=== PATIENT | male | born 1935 | race Caucasian/White ===

== ENCOUNTER → 2019-01-13 11:18 | Outpatient (CLI) | payer MEDICARE, SELFPAY ==
--- NOTE | 2019-01-13 | DI.RAD.S_ITS ---
PROCEDURE: XR KNEE LT 3V INDICATIONS: LEFT KNEE PAIN TECHNIQUE: 3 views of the knee were acquired. COMPARISON: None. FINDINGS: Bones: No fractures or dislocations. There is mild femorotibial compartment narrowing. No suspicious bony lesions. Soft tissues: No joint effusion. There are scattered atheromatous soft tissue vascular calcifications. IMPRESSION: Mild osteoarthritis and arterial atherosclerosis. Dictated by: Emilee Alba M.D. on 01/13/2019 at 16:46 Approved by: Emilee Alba M.D. on 01/13/2019 at 16:47
== END ==
PROVIDERS: PCP Family Medicine; Visit Provider Family Medicine
DX: M17.12 Unilateral primary osteoarthritis, left knee (principal); M25.562 Pain in left knee; G89.29 Other chronic pain
CPT/HCPCS: 73562

== ENCOUNTER → 2021-09-18 15:35 | Outpatient (CLI) | payer MEDICARE, SELFPAY ==
--- NOTE | 2021-09-18 | DI.ECHO.S_ITS ---
[facility]---------+ [facility] +---------+ : : [address] : : : : [id number] : : : : Phone: [phone]+ Echocardiogram Report + + :Name: TED MORENO Study Date: 09/18/2021 Height: 72 in : :[facility] ReadingLocation: Weight: 160 lb : : Gender: Male BSA: 1.9 m2 : :: 1935 Age: 86 yrs BP: 188/100 mmHg: :Reason For Study: PROSTHETIC HEART VALVE : :Ordering Physician: DAYANA, : :VALDEMAR Performed By: Steffany Viera : :Referring: VALDEMAR ANNE : + + Interpretation Summary The left ventricle is normal in size. There is mild-moderate concentric left ventricular hypertrophy. Left ventricular ejection fraction is estimated to be 60 +/- 5%. Previous LV ejection fraction 65 to 70%. MV E/A: 0.88 Med Peak E' Trevor: 2.9 cm/sec E/E' med: 32.2. Previously ratio 23.5. The right ventricle is normal in size and function. There is moderate mitral regurgitation. Compared to the prior echo study, there has been an increase in the severity of mitral regurgitation. Previously mild to moderate MR. There is a prosthetic aortic valve. There is mild perivalvular regurgitation around the prosthetic aortic valve. No significant change. The peak aortic velocity is 2.23 m/sec. The aortic valve mean gradient is 11 mmHg. The peak aortic velocity on the previous exam was 2.7 m/sec. There is moderate tricuspid regurgitation. Compared to the prior echo exam, there has been an increase in TR severity. Previously mild TR. The right ventricular systolic pressure is estimated to be at least 41 mmHg based on an estimated right atrial pressure of 3 mm Hg. Previously it was 36 mmHg. There is mild luminal irregularity and echogenicity in the abdominal aorta, suggestive of aortic atherosclerotic disease. Procedure: A two-dimensional transthoracic echocardiogram with color flow and Doppler was performed. The study quality was technically adequate. Comparison is made with the echocardiogram of 11/03/2018. The heart rate ranged between 67-76 bpm during the study. The patient had occasional PVCs during the exam. The patient was in normal sinus rhythm during the exam. The patient had a bundle branch block rhythm during the exam. Left Ventricle: The left ventricle is normal in size. There is mild-moderate concentric left ventricular hypertrophy. There is no thrombus. Left ventricular ejection fraction is estimated to be 60 +/- 5%. Septal motion is consistent with conduction abnormality. MV E/A: 0.88 Med Peak E' Trevor: 2.9 cm/sec E/E' med: 32.2. Right Ventricle: The right ventricle is normal in size and function. Atria: The left atrium is severely dilated. The left atrium has mildly increased in size since the prior echo exam. The right atrium is mildly dilated. There is no Doppler evidence for an interatrial shunt. Mitral Valve: There is moderate mitral annular calcification. Tip of the anterior mitral leaflet has calcification. No significant mitral stenosis. The mitral valve chordae are thickened and/or calcified. No significant mitral valve stenosis. There is moderate mitral regurgitation. Compared to the prior echo study, there has been an increase in the severity of mitral regurgitation. Aortic Valve: There is a prosthetic aortic valve. There is mild perivalvular regurgitation around the prosthetic aortic valve. The peak aortic velocity is 2.23 m/sec. The aortic valve mean gradient is 11 mmHg. The peak aortic velocity on the previous exam was 2.7 m/sec. Tricuspid Valve: The tricuspid valve leaflets are thin and pliable. There is moderate tricuspid regurgitation. The right ventricular systolic pressure is estimated to be at least 41 mmHg based on an estimated right atrial pressure of 3 mm Hg. Compared to the prior echo exam, there has been an increase in TR severity. Pulmonic Valve: The pulmonic valve leaflets are thin and pliable; valve motion is normal. There is trace pulmonic regurgitation. Great Vessels: The aortic root is not well visualized. The dimensions of the ascending aorta are normal. There is mild luminal irregularity and echogenicity in the abdominal aorta, suggestive of aortic atherosclerotic disease. The IVC is of normal diameter and collapses greater than 50% with a sniff. This suggests a low right atrial pressure of 3 mm Hg. Pericardium/ Pleura There is no pericardial effusion. There is no pleural effusion. MMode/2D Measurements & Calculations LVIDd: 4.9 cm LVOT diam: 2.1 cm LVIDs: 3.4 cm asc Aorta Diam: 3.0 cm FS: 29.6 % IVSd: 1.4 cm LVPWd: 1.3 cm LV starks. diameter/BSA (cm/m^2): 2.5 LV sys. diameter/BSA (cm/m^2): 1.8 LA A2 area: 25.7 cm2 RA long axis: 5.7 cm LA A4 area: 23.5 cm2 RA area: 20.9 cm2 LA length (vol): 5.6 cm RA vol: 65.0 ml LA vol: 91.7 ml RA : 33.6 ml/m2 LA vol index: 47.3 ml/m2 IVC diam: 1.5 cm RVD1 (basal): 3.5 cm TAPSE: 2.4 cm Doppler Measurements & Calculations Ao V2 max: 223.4 cm/sec LVOT Max Trevor: 82.4 cm/sec Ao V2 mean: 157.5 cm/sec LV V1 max P.7 mmHg Ao max P.1 mmHg LV V1 VTI: 15.9 cm Ao mean P.3 mmHg ANAY(I,D): 1.2 cm2 Ao V2 VTI: 44.3 cm ANAY(V,D): 1.2 cm2 sev ratio: 0.36 ANAY indexed to BSA (cm^2/m^2): 0.62 MV E max trevor: 92.2 cm/sec TR max trevor: 306.6 cm/sec MV A max trevor: 105.2 cm/sec TR max P.6 mmHg MV E/A: 0.88 PA V2 max: 121.0 cm/sec Med Peak E' Trevor: 2.9 cm/sec PA V2 mean: 82.4 cm/sec E/E' med: 32.2 PA mean P.1 mmHg Lat Peak E' Trevor: 4.9 cm/sec PA pr(Accel): 36.2 mmHg E/E' lat: 18.6 E/e' average: 25.4 MV dec time: 0.34 sec SV(LVOT): 53.2 ml Reading Physician:12:45 PM
== END ==
PROVIDERS: PCP Family Medicine; Referring Provider Internal Medicine Cardiovascular Disease; Visit Provider Internal Medicine Cardiovascular Disease
DX: Z95.2 Presence of prosthetic heart valve (principal); I08.3 Combined rheumatic disorders of mitral, aortic and tricuspid valves
CPT/HCPCS: 93306

== ENCOUNTER → 2021-11-12 12:11 | Outpatient (CLI) | payer MEDICARE, SELFPAY ==
[2021-11-12 19:19] LABS: Alanine Aminotransferase 19 IU/L (<50); Albumin Globulin Ratio 1.4 (1.0-2.8); Alkaline Phosphatase 119 U/L (38-126); Aspartate Aminotransferase 34 IU/L (17-59); BUN Creatinine Ratio 25.7 (6-22); Bilirubin Total 0.9 mg/dL (0.2-1.3); Blood Urea Nitrogen 19 mg/dL (9-20); Calcium 9.5 mg/dL (8.4-10.2); Carbon Dioxide 29 mmol/L (22-32); Chloride 103 mmol/L (98-107); Cholesterol 167 mg/dL (140-199); Estimated Glomerular Filt Rate > 60 mL/min (>60); Globulin 2.9 g/dL (1.7-4.1); Glucose 92 mg/dL (80-110); HDL Cholesterol 88 mg/dL (40-60); HEMOLYSIS < 15 (0-50); LDL Cholesterol Calculated 63 mg/dL (<100); Potassium 4.6 mmol/L (3.4-5.1); Sodium 138 mmol/L (137-145); Total Protein 6.9 g/dL (6.3-8.2); Triglycerides 80 mg/dL (35-150)
[2021-11-12 19:22] LABS: Add Manual Diff / Slide Review NO; Basophils Absolute Auto 100 /uL (0-100); Basophils Percent Auto 0.9 % (0-2); Eosinophils Absolute Auto 100 /uL (0-450); Hematocrit 40.7 % (41-53); Hemoglobin 13.8 g/dL (13.5-17.5); Lymphocytes Absolute Auto 1300 /uL (1100-4500); Lymphocytes Percent Auto 17.4 % (25-40); Mean Corpuscular HGB Conc 33.9 % (30-36); Mean Corpuscular Hemoglobin 29.3 PG (26-34); Mean Corpuscular Volume 86.6 fL (80-100); Monocytes Absolute Auto 900 /uL (0-900); Neutrophils Absolute Auto 4900 /uL (1500-7000); Neutrophils Percent Auto 67.7 % (50-75); Platelet Count 417 X10^3/uL (150-400); Red Cell Distribution Width 15.1 % (11.6-14.8); White Blood Cell Count 7.2 X10^3/uL (4.5-11.0)
[2021-11-12 19:26] LABS: NT-proBNP (BNP-Adult 18+) 412 pg/mL (<450)
[2021-11-12 20:07] LABS: Vitamin B12 522 pg/mL (239-931)
== END ==
PROVIDERS: PCP Family Medicine; Visit Provider Family Medicine
DX: E78.2 Mixed hyperlipidemia (principal); I50.9 Heart failure, unspecified; D75.839 Thrombocytosis, unspecified; I10 Essential (primary) hypertension; I25.10 Atherosclerotic heart disease of native coronary artery without angina pectoris; I35.0 Nonrheumatic aortic (valve) stenosis; I65.23 Occlusion and stenosis of bilateral carotid arteries; M62.59 Muscle wasting and atrophy, not elsewhere classified, multiple sites; R25.1 Tremor, unspecified; R41.3 Other amnesia; R41.89 Other symptoms and signs involving cognitive functions and awareness; Z87.898 Personal history of other specified conditions
CPT/HCPCS: 80053; 80061; 82607; 83880; 85025

== ENCOUNTER → 2021-12-05 12:42 | Outpatient (CLI) | payer MEDICARE, SELFPAY ==
--- NOTE | 2021-12-05 12:46 | DI.MRI.S_ITS ---
PROCEDURE: MR HEAD/BRAIN WO/W CON INDICATIONS: Rule out Parkinson's demyelinating disorder dementia related TECHNIQUE: Noncontrast axial T1 spin echo, axial T2 fast spin echo, sagittal and axial FLAIR, coronal T2 fast spin echo, axial gradient echo, axial diffusion and ADC through the brain. After the administration of contrast, axial and coronal T1 spin echo with fat saturation through the brain. COMPARISON: RG, MRI BRAIN (IAC) W/WO CONTRAST, 01/30/2005, 12:58. FINDINGS: Image quality: Excellent. CSF spaces: Basal cisterns are patent. No extra-axial fluid collections. Ventricles are normal in size and shape. Brain: No midline shift. No intracranial bleeds or masses. No abnormal intracranial enhancement. There is moderate cerebral volume loss for age. There is moderate periventricular white matter chronic small vessel ischemic change. The brainstem appears normal. Diffusion-weighted images demonstrate no acute ischemic insults. No chronic ischemic insults. Normal intravascular flow voids are present. Dural sinuses demonstrate normal postcontrast enhancement. Skull and face: Calvarial marrow is normal in signal. Orbits appear normal. Sinuses: Sinuses and mastoids appear clear. IMPRESSION: 1. No acute intracranial disease process. 2. No abnormal intracranial mass or suspicious postcontrast enhancement. 3. No areas of acute or chronic infarction. 4. Moderate, diffuse cerebral volume loss. 5. Moderate periventricular and subcortical white matter chronic microvascular ischemic change. Dictated by: Alyssia Rey MD, PhD on 12/05/2021 at 13:57 Approved by: Alyssia Rey MD, PhD on 12/05/2021 at 17:58
== END ==
PROVIDERS: PCP Family Medicine; Referring Provider Family Medicine; Visit Provider Family Medicine
DX: R41.3 Other amnesia (principal); R41.89 Other symptoms and signs involving cognitive functions and awareness; R25.1 Tremor, unspecified; D75.839 Thrombocytosis, unspecified; E78.2 Mixed hyperlipidemia; I10 Essential (primary) hypertension; I35.0 Nonrheumatic aortic (valve) stenosis; I65.23 Occlusion and stenosis of bilateral carotid arteries; M62.59 Muscle wasting and atrophy, not elsewhere classified, multiple sites
CPT/HCPCS: 70553; A9579

== ENCOUNTER → 2022-12-18 13:26 | Outpatient (CLI) | payer MEDICARE, SELFPAY ==
[2022-12-18 20:27] LABS: HEMOLYSIS < 15 (0-50); Iron 104 ug/dL (49-181)
[2022-12-18 20:38] LABS: Percent Iron Saturation 31 % (20-50); Total Iron Binding Capacity 336 ug/dL (261-462); Transferrin 227 mg/dL (206-381)
[2022-12-18 20:39] LABS: Aspartate Aminotransferase 34 IU/L (17-59); BUN Creatinine Ratio 27.2 (6-22); Blood Urea Nitrogen 22 mg/dL (9-20); Calcium 9.4 mg/dL (8.4-10.2); Carbon Dioxide 30 mmol/L (22-32); Chloride 102 mmol/L (98-107); Cholesterol 167 mg/dL (140-199); Estimated Glomerular Filt Rate > 60 mL/min (>60); Glucose 96 mg/dL (80-110); HDL Cholesterol 87 mg/dL (40-60); HEMOLYSIS < 15 (0-50); LDL Cholesterol Calculated 61 mg/dL (<100); Potassium 4.3 mmol/L (3.4-5.1); Sodium 138 mmol/L (137-145); Triglycerides 95 mg/dL (35-150)
[2022-12-18 20:46] LABS: Add Manual Diff / Slide Review SLIDE REVIEW; Basophils Absolute Auto 100 /uL (0-100); Basophils Percent Auto 0.7 % (0-2); Eosinophils Absolute Auto 200 /uL (0-450); Eosinophils Percent Auto 2.4 % (2-4); Hematocrit 42.8 % (41-53); Lymphocytes Absolute Auto 1400 /uL (1100-4500); Lymphocytes Percent Auto 15.8 % (25-40); Mean Corpuscular HGB Conc 32.7 % (30-36); Mean Corpuscular Volume 88.6 fL (80-100); Monocytes Absolute Auto 900 /uL (0-900); Monocytes Percent Auto 10.2 % (3-14); Neutrophils Absolute Auto 6300 /uL (1500-7000); Neutrophils Percent Auto 70.9 % (50-75); Platelet Count 426 X10^3/uL (150-400); Red Blood Cell Count 4.83 X10^6/uL (4.5-5.9); Red Cell Distribution Width 14.4 % (11.6-14.8); White Blood Cell Count 8.9 X10^3/uL (4.5-11.0)
[2022-12-18 20:47] LABS: Platelet Morphology Comment NOTE; RBC Morphology Normal Morphology
== END ==
PROVIDERS: PCP Family Medicine; Visit Provider Family Medicine
DX: E55.9 Vitamin D deficiency, unspecified (principal); E78.2 Mixed hyperlipidemia; D75.839 Thrombocytosis, unspecified; I10 Essential (primary) hypertension; I25.10 Atherosclerotic heart disease of native coronary artery without angina pectoris; I35.0 Nonrheumatic aortic (valve) stenosis; I65.23 Occlusion and stenosis of bilateral carotid arteries; M17.0 Bilateral primary osteoarthritis of knee; Z95.2 Presence of prosthetic heart valve; D64.9 Anemia, unspecified; B35.1 Tinea unguium; Z51.81 Encounter for therapeutic drug level monitoring
CPT/HCPCS: 80048; 80061; 82306; 83540; 83550; 84450; 85025

== ENCOUNTER → 2023-03-12 11:43 | Outpatient (CLI) | payer MEDICARE, SELFPAY ==
[2023-03-12 20:14] LABS: Aspartate Aminotransferase 33 IU/L (17-59)
== END ==
PROVIDERS: PCP Family Medicine; Visit Provider Family Medicine
DX: Z51.81 Encounter for therapeutic drug level monitoring (principal); B35.1 Tinea unguium
CPT/HCPCS: 84450

== ENCOUNTER → 2023-08-26 10:35 | Outpatient (CLI) | payer MEDICARE, SELFPAY ==
[2023-08-26 19:05] LABS: Alanine Aminotransferase 27 IU/L (<50); Albumin Globulin Ratio 1.3 (1.0-2.8); Alkaline Phosphatase 93 U/L (38-126); Aspartate Aminotransferase 37 IU/L (17-59); Bilirubin Total 1.1 mg/dL (0.2-1.3); Blood Urea Nitrogen 16 mg/dL (9-20); Calcium 10.1 mg/dL (8.4-10.2); Carbon Dioxide 28 mmol/L (22-32); Chloride 107 mmol/L (98-107); Cholesterol 173 mg/dL (140-199); Estimated Glomerular Filt Rate > 60 mL/min (>60); Globulin 3.2 g/dL (1.7-4.1); Glucose 101 mg/dL (80-110); HDL Cholesterol 78 mg/dL (40-60); HEMOLYSIS < 15 (0-50); LDL Cholesterol Calculated 79 mg/dL (<100); Potassium 4.5 mmol/L (3.4-5.1); Sodium 141 mmol/L (137-145); Total Protein 7.2 g/dL (6.3-8.2); Triglycerides 80 mg/dL (35-150)
== END ==
PROVIDERS: PCP Family Medicine; Visit Provider Internal Medicine Cardiovascular Disease
DX: E78.5 Hyperlipidemia, unspecified (principal)
CPT/HCPCS: 80053; 80061

== ENCOUNTER → 2023-09-29 13:31 | Outpatient (CLI) | payer MEDICARE, SELFPAY ==
--- NOTE | 2023-09-29 13:33 | DI.ECHO.S_ITS ---
[place]---------+ [facility] +---------+ : : [address] : : : : [id number] : : : : Phone: [phone]---------+ Echocardiogram Report + + :Name: TED MORENO Study Date: 09/29/2023 Height: 72 in : :[facility] ReadingLocation: Weight: 180 lb : : Gender: Male BSA: 2.0 m2 : :: 1935 Age: 88 yrs BP: 159/81 mmHg: :Reason For Study: PROSTHETIC HEART VALVE : :Ordering Physician: DAYANA, : :VALDEMAR Performed By: Steffany Viera : :Referring: VALDEMAR ANNE : + + Interpretation Summary The left ventricle is grossly normal size. There is moderate concentric left ventricular hypertrophy. The left ventricle is hyperdynamic. The ejection fraction is estimated to be 70-75%. No significant LV outflow tract obstruction. MV E/A: 0.90 Med Peak E' Trevor: 2.9 cm/sec E/E' med: 29.3 Diastolic parameters suggest probable elevated filling pressures. The right ventricle is normal in size and function. There is moderate mitral regurgitation. Compared to the prior echo study, there has been no change in the severity of mitral regurgitation. There is a bioprosthetic aortic valve. The prosthetic aortic valve is well-seated. There is trace perivalvular regurgitation around the prosthetic aortic valve. The peak aortic velocity is 2.6 m/sec. The aortic valve mean gradient is 16 mmHg. The peak aortic velocity on the previous exam was 2.23 m/sec. There is moderate tricuspid regurgitation. Compared to the prior echo exam, there has been no change in TR severity. The right ventricular systolic pressure is estimated to be at least 42 mmHg based on an estimated right atrial pressure of 3 mm Hg. Compared to the prior echo exam, there has been no change in the severity of pulmonary hypertension. Procedure: A two-dimensional transthoracic echocardiogram with color flow and Doppler was performed. The study quality was technically adequate. Comparison is made with the echocardiogram of 09/18/2021. The patient was in sinus rhythm with heart rates between 58-75 bpm during the exam. The patient had a bundle branch block rhythm during the exam. Left Ventricle: There is moderate concentric left ventricular hypertrophy. The left ventricle is grossly normal size. There is severe proximal septal thickening noted. There is no thrombus. The ejection fraction is estimated to be 70-75%. The left ventricle is hyperdynamic. There are no focal wall motion abnormalities. MV E/A: 0.90 Med Peak E' Trevor: 2.9 cm/sec E/E' med: 29.3. Diastolic parameters suggest probable elevated filling pressures. Right Ventricle: The right ventricle is normal in size and function. Atria: The left atrium is moderately dilated. The left atrium has mildly decreased in size since the prior echo exam. Right atrial size is normal. There is no Doppler evidence for an interatrial shunt. Mitral Valve: There is moderate mitral annular calcification. Tip of the anterior mitral leaflet has calcification. The mitral valve chordae are thickened and/or calcified. No significant mitral valve stenosis. There is moderate mitral regurgitation. Compared to the prior echo study, there has been no change in the severity of mitral regurgitation. Aortic Valve: There is a bioprosthetic aortic valve. There is trace perivalvular regurgitation around the prosthetic aortic valve. The prosthetic aortic valve is well-seated. The peak aortic velocity is 2.6 m/sec. The aortic valve mean gradient is 16 mmHg. The peak aortic velocity on the previous exam was 2.23 m/sec. Tricuspid Valve: The tricuspid valve is normal. There is moderate tricuspid regurgitation. The right ventricular systolic pressure is estimated to be at least 42 mmHg based on an estimated right atrial pressure of 3 mm Hg. Compared to the prior echo exam, there has been no change in TR severity. Compared to the prior echo exam, there has been no change in the severity of pulmonary hypertension. Pulmonic Valve: The pulmonic valve is not well seen, but is grossly normal. There is trace pulmonic regurgitation. Great Vessels: The dimensions of the ascending aorta are normal. The IVC is of normal diameter and collapses greater than 50% with a sniff. This suggests a low right atrial pressure of 3 mm Hg. Pericardium/ Pleura There is no pericardial effusion. There is no pleural effusion. MMode/2D Measurements & Calculations LVIDd: 4.7 cm LVOT diam: 2.0 cm LVIDs: 3.1 cm asc Aorta Diam: 3.5 cm FS: 34.0 % IVSd: 1.4 cm LVPWd: 1.0 cm LV starks. diameter/BSA (cm/m^2): 2.3 LV sys. diameter/BSA (cm/m^2): 1.5 LA A2 area: 19.8 cm2 RA long axis: 5.5 cm LA A4 area: 24.4 cm2 RA area: 18.3 cm2 LA length (vol): 5.8 cm RA vol: 52.2 ml LA vol: 70.3 ml RA : 25.6 ml/m2 LA vol index: 34.5 ml/m2 IVC diam: 1.3 cm RVD1 (basal): 4.0 cm RVD2 (mid): 3.0 cm TAPSE: 2.4 cm Doppler Measurements & Calculations Ao V2 max: 256.0 cm/sec LVOT Max Trevor: 135.6 cm/sec Ao V2 mean: 189.3 cm/sec LV V1 max P.4 mmHg Ao max P.2 mmHg LV V1 VTI: 26.1 cm Ao mean P.7 mmHg ANAY(I,D): 1.8 cm2 Ao V2 VTI: 46.5 cm ANAY(V,D): 1.7 cm2 sev ratio: 0.56 ANAY indexed to BSA (cm^2/m^2): 0.91 MV E max trevor: 85.6 cm/sec TR max trevor: 313.0 cm/sec MV A max trevor: 95.4 cm/sec TR max P.2 mmHg MV E/A: 0.90 PA V2 max: 149.9 cm/sec Med Peak E' Trevor: 2.9 cm/sec PA V2 mean: 99.2 cm/sec E/E' med: 29.3 PA mean P.5 mmHg Lat Peak E' Trevor: 6.2 cm/sec PA pr(Accel): 39.6 mmHg E/E' lat: 13.8 E/e' average: 21.6 MV dec time: 0.37 sec SV(LVOT): 85.9 ml Reading Physician:01:25 PM
== END ==
LOC: ECHO 13:31
PROVIDERS: PCP Family Medicine; Referring Provider Internal Medicine Cardiovascular Disease; Visit Provider Internal Medicine Cardiovascular Disease
DX: I08.1 Rheumatic disorders of both mitral and tricuspid valves (principal); Z95.2 Presence of prosthetic heart valve
CPT/HCPCS: 93306

== ENCOUNTER → 2024-03-01 14:55 | Outpatient (CLI) | payer MEDICARE, SELFPAY | PROVIDERS: PCP Family Medicine; Visit Provider Family Medicine | DX: R39.15 Urgency of urination (principal) | CPT/HCPCS: 87077; 87086 ==

== ENCOUNTER → 2024-05-17 14:08 | Outpatient (CLI) | payer MEDICARE, SELFPAY ==
--- NOTE | 2024-05-17 14:10 | DI.MRI.S_ITS ---
PROCEDURE: MR LUMBAR SPINE WO CON INDICATIONS: Lower extrm weakness and imbalance TECHNIQUE: Noncontrast sagittal T1 spin echo and T2 fast echo, sagittal STIR, and T2 fast spin echo through the lumbar spine. In cases with scoliosis, additional coronal T2 fast spin echo may be performed. COMPARISON: None. FINDINGS: Image quality: Excellent. Alignment and Curvature: Mild anterolisthesis of L4 on L5. Bone Marrow: Degenerative endplate changes are present. Moderate compression deformity of T12, mild superior endplate compression deformity of L1 without associated edema. Marrow is of normal overall signal. No acute vertebral body compression fractures. Spinal Cord: Conus medullaris terminates at the L1-L2 level. Visualized cord demonstrates normal signal and size. Paraspinous Soft Tissues: No paravertebral masses. T12-L1: Disc desiccation. No central canal or neural foraminal stenosis. L1-L2: Disc desiccation and mild disc bulge. No central canal or neural foraminal stenosis. L2-L3: Disc desiccation and mild height loss. Mild diffuse disc bulge. Facet arthropathy and thickening of ligamentum flavum. No significant central canal stenosis. Mild bilateral neural foraminal stenosis. L3-L4: Disc desiccation and mild disc bulge. Facet arthropathy and thickening of ligamentum flavum. Mild to moderate central canal stenosis. Moderate right and mild left neural foraminal stenosis. L4-L5: Disc desiccation and mild height loss. Diffuse disc bulge. Facet arthropathy and thickening of ligamentum flavum. Moderate central canal stenosis. Mild left and moderate right neural foraminal stenosis. L5-S1: Disc desiccation and mild disc bulge. Facet arthropathy. No central canal stenosis. Moderate left and mild right neural foraminal stenosis. IMPRESSION: 1. Multilevel degenerative changes of the lumbar spine as described above. 2. Moderate central canal stenosis at L4-5. Mild to moderate central canal stenosis at L3-L4. 3. Multilevel mild and moderate neural foraminal stenosis as above. Dictated by: Arun Francisco M.D. on 05/17/2024 at 16:31 Approved by: Arun Francisco M.D. on 05/17/2024 at 16:34
== END ==
PROVIDERS: PCP Family Medicine; Referring Provider Family Medicine; Visit Provider Family Medicine
DX: M47.816 Spondylosis without myelopathy or radiculopathy, lumbar region (principal); M47.817 Spondylosis without myelopathy or radiculopathy, lumbosacral region; M48.061 Spinal stenosis, lumbar region without neurogenic claudication; M48.07 Spinal stenosis, lumbosacral region; R29.898 Other symptoms and signs involving the musculoskeletal system; R26.89 Other abnormalities of gait and mobility
CPT/HCPCS: 72148